=== PATIENT | male | born 1940 | race Two or more races ===

== ENCOUNTER 2020-03-28 17:30 | Emergency (ER) | payer OTHER ==
[~2020-03-28] VITALS: Ht 172.7 cm; Wt 108.9 kg
[~2020-03-28 17:30] MED LIST: GASTRACE CAPSU1 EACH PO; SYNTHROID125 MCG
== END 2020-03-28 20:00 | disposition home or self-care (01) ==
LOC: ER 17:30
DX: I80.02 Phlebitis and thrombophlebitis of superficial vessels of left lower extremity (principal); L03.116 Cellulitis of left lower limb

== ENCOUNTER → 2021-01-22 07:05 | Outpatient (CLI) | payer OTHER | END | disposition home or self-care (01) | LOC: RAD 07:05 → LAB 07:05 | PROVIDERS: ATTEND Specialist | DX: I10 Essential (primary) hypertension (principal); M25.512 Pain in left shoulder; N40.2 Nodular prostate without lower urinary tract symptoms; M75.122 Complete rotator cuff tear or rupture of left shoulder, not specified as traumatic; N64.3 Galactorrhea not associated with childbirth; E78.2 Mixed hyperlipidemia ==

== ENCOUNTER 2021-02-06 07:24 | Outpatient (CLI) | payer OTHER | END 2021-02-06 07:37 | disposition home or self-care (01) | LOC: TOM 07:24 | PROVIDERS: ATTEND Specialist | DX: R10.84 Generalized abdominal pain (principal); N20.0 Calculus of kidney; N30.00 Acute cystitis without hematuria | CPT/HCPCS: 74177; Q9965 ==

== ENCOUNTER 2022-09-15 07:30 | Outpatient (CLI) | payer OTHER | END 2022-09-15 07:31 | disposition home or self-care (01) | LOC: NUCLEAR 07:30 | PROVIDERS: ATTEND Thoracic Surgery (Cardiothoracic Vascular Surgery) | DX: I87.2 Venous insufficiency (chronic) (peripheral) (principal) ==

== ENCOUNTER 2022-09-15 08:38 | Outpatient (CLI) | payer OTHER | END 2022-09-15 08:40 | disposition home or self-care (01) | LOC: RAD 08:38 | PROVIDERS: ATTEND General Practice | DX: J45.991 Cough variant asthma (principal) ==

== ENCOUNTER 2022-09-16 08:53 | Outpatient (CLI) | payer OTHER | END 2022-09-16 08:55 | disposition home or self-care (01) | LOC: NUCLEAR 08:53 | PROVIDERS: ATTEND Thoracic Surgery (Cardiothoracic Vascular Surgery) | DX: I73.9 Peripheral vascular disease, unspecified (principal) ==

== ENCOUNTER 2024-01-17 07:22 | Outpatient (CLI) | payer OTHER | END 2024-01-17 07:29 | disposition home or self-care (01) | LOC: RX STUDY 07:22 | PROVIDERS: ATTEND Internal Medicine Endocrinology, Diabetes & Metabolism | DX: K29.70 Gastritis, unspecified, without bleeding (principal); K44.0 Diaphragmatic hernia with obstruction, without gangrene ==

== ENCOUNTER 2024-02-28 07:53 | Outpatient (CLI) | payer OTHER | END 2024-02-28 08:10 | disposition home or self-care (01) | LOC: TOM 07:53 | PROVIDERS: ATTEND Internal Medicine Endocrinology, Diabetes & Metabolism | DX: R19.5 Other fecal abnormalities (principal) | CPT/HCPCS: 74178; Q9965 ==

== ENCOUNTER 2025-04-03 08:49 | Outpatient (CLI) | payer OTHER | END 2025-04-03 08:50 | disposition home or self-care (01) | LOC: NUCLEAR 08:49 | PROVIDERS: ATTEND General Practice | DX: I83.893 Varicose veins of bilateral lower extremities with other complications (principal); I73.89 Other specified peripheral vascular diseases; I87.2 Venous insufficiency (chronic) (peripheral) ==

== ENCOUNTER 2025-04-04 08:39 | Outpatient (CLI) | payer OTHER | END 2025-04-04 08:40 | disposition home or self-care (01) | LOC: NUCLEAR 08:39 | PROVIDERS: ATTEND General Practice | DX: I83.893 Varicose veins of bilateral lower extremities with other complications (principal); I73.89 Other specified peripheral vascular diseases; I87.2 Venous insufficiency (chronic) (peripheral) ==